=== PATIENT | female | born 1970 | race Caucasian/White ===

== ENCOUNTER 2020-05-21 11:24 | Outpatient (CLI) | payer BC, SELFPAY ==
--- NOTE | 2020-05-21 11:37 | XR_ITS ---
WS: [id number] XR cervical spine 3V* [id number] REASON FOR EXAM: NECK PAIN FINDINGS: Normal cervical vertebral bodies. Normal odontoid and atlantoaxial articulation. The C5-C7 segment of the cervical spine demonstrates mild retrolisthesis compared to the C1-C4 segmen t. There is moderate narrowing of the C5-C6 C6-C7 and C7-T1 disc spaces. There is normal facet alignment. Minimal degenerative changes seen in the facet joints from C5 to T1. XR/XR cervical spine 3V* [id number] IMPRESSION: Degenerative spondylosis as above.
--- NOTE | 2020-05-21 11:38 | XR_ITS ---
WS: [id number] XR lumbar spine 6V w f/e [id number] REASON FOR EXAM: BACK PAIN FINDINGS: There are 5 nonrib lumbar vertebral bodies. Very minimal rotatory scoliosis convex left. No significa nt listhesis. No spondylolysis identified on the oblique views. No abnormal movement between flexion and extension. No significant focal vertebral body abnormality. Mild to moderate narrowing of the L5-S1 disc space. Mild degenerative change in the facet joints L3-S1. XR/XR lumbar spine 6V w f/e [id number] IMPRESSION: Mild changes of degenerative spondylosis as above.
--- NOTE | 2020-05-21 11:38 | XR_ITS ---
WS: [id number] XR elbow LT min 3V* [id number] REASON FOR EXAM: ELBOW PAIN FINDINGS: Joint spaces of the left elbow are well preserved. No focal bony abnormality. No soft tissue abnormality. XR/XR elbow LT min 3V* [id number] IMPRESSION: No significant abnormality.
--- NOTE | 2020-05-21 11:40 | XR_ITS ---
WS: [id number] XR elbow RT min 3V* [id number] REASON FOR EXAM: PAIN FINDINGS: Joint spaces of the right elbow are well preserved. Small bony exostosis from the proximal lateral ulna. This could represent an enthesophyte from the fl exor tendon origin. No other focal bony abnormality. No soft tissue abnormality. XR/XR elbow RT min 3V* [id number] IMPRESSION: Small bony exostosis of the ulna as above. Unlikely to be clinically significan t. Otherwise no abnormality.
== END 2020-05-21 11:25 | disposition home or self-care (01) ==
LOC: RAD 11:30
PROVIDERS: Visit Provider Nurse Practitioner Family
DX: M25.522 Pain in left elbow (principal); M25.521 Pain in right elbow; M47.816 Spondylosis without myelopathy or radiculopathy, lumbar region; M47.812 Spondylosis without myelopathy or radiculopathy, cervical region
CPT/HCPCS: 72040; 72114; 73080